=== PATIENT | female | born 1965 | race Caucasian/White ===

== ENCOUNTER 2017-02-21 06:23 | Day surgery (SDC) | payer BC ==
[~2017-02-21 06:23] MED LIST: Acetaminophen TAB* 325 MG PO ONE; Buffered Lidocaine 0.9% SYRIN* 5 ML/SYR SYRINGE INTRADERM ONE; Famotidine IV* 10 MG/ML 2 ML (20 mg) IV ONE
[2017-02-21] MEDS ORDERED: Famotidine IV* 10 MG/ML 2 ML (20 mg) ONE (06:26)
[2017-02-21] MEDS ORDERED: Acetaminophen TAB* 325 MG ONE (06:26)
[2017-02-21] MEDS ORDERED: ceFOXitin 2 GM IVPREMIX* 2 GM/50 ML BAG ONE (06:26)
[2017-02-21] MEDS ORDERED: Buffered Lidocaine 0.9% SYRIN* 5 ML/SYR SYRINGE ONE (06:27)
[2017-02-21 06:55] LABS: ABS Basophils 0.2 10^3/ul (0-0.2); ABS Eosinophils 0.3 10^3/ul (0-0.6); ABS Lymphocytes 2.6 10^3/ul (1.0-4.8); ABS Monocytes 0.5 10^3/ul (0-0.8); ABS Neutrophils 3.7 10^3/ul (1.5-7.7); ABS Nucleated RBC 0 10^3/ul; Eosinophil % 3.4 % (0-6); Hematocrit 37 % (35-47); Hemoglobin 12.4 g/dl (12.0-16.0); Lymphocyte % 35.9 % (25-47); Mean Corpuscular HGB Conc 34 g/dl (31-36); Mean Corpuscular Hemoglobin 31 pg (27-31); Mean Corpuscular Volume 93 fL (80-97); Mean Platelet Volume 8 um3 (7.4-10.4); Nucleated Red Blood Cells % 0; Platelet Count 384 10^3/ul (150-450); Red Blood Count 3.95 10^6/ul (4.0-5.4); Red Cell Distribution Width 15 % (10.5-15); White Blood Count 7.3 10^3/ul (3.5-10.8)
[2017-02-21] MEDS ORDERED: Midazolam* 1 MG/ML 2 ML VIAL (2 MG) ONE (07:10)
[2017-02-21] MEDS ORDERED: fentaNYL* 50 MCG/ML 2 ML VIAL (100 MCG VIAL) ONE (07:10)
[2017-02-21] MEDS ORDERED: Lidocaine 1% INJ* 10 MG/ML 30 ML SDV ONE (07:53)
[2017-02-21] MEDS ORDERED: Lidocaine 2% PF * 5 ML VIAL ONE (08:14)
[2017-02-21] MEDS ORDERED: Propofol* 500 MG/50 ML BTL ONE (08:14)
[2017-02-21] MEDS ORDERED: EPHEDrine (Pressors)* 50 MG/ML VIAL ONE (08:15)
[2017-02-21] MEDS ORDERED: Ondansetron INJ* 2 MG/ML VIAL ONE (08:15)
[2017-02-21] MEDS ORDERED: Ketorolac INJ* 30 MG/ML 1 ML VIAL ONE (08:15)
[2017-02-21] MEDS ORDERED: Sterile Water for Inj* 10 ML ONE (08:15)
[2017-02-21] MEDS ORDERED: fentaNYL* 50 MCG/ML 2 ML VIAL (100 MCG VIAL) IV PRN (08:47)
[2017-02-21] MEDS ORDERED: oxyCODONE/Acetamin 5/325 MG* TAB PO PRN (08:47)
[2017-02-21] MEDS ORDERED: oxyCODONE TAB* 5 MG TAB PO PRN (08:47)
[2017-02-21] MEDS ORDERED: Ondansetron INJ* 2 MG/ML VIAL IV PRN (08:47)
[2017-02-21] MEDS ORDERED: Naloxone* 0.4 MG/ML 1 ML VIAL IV PRN (08:47)
[2017-02-21] MEDS ORDERED: HYDROcodone/ACETAMIN 5-325 MG* 1 TAB PO PRN (08:47)
[2017-02-21 09:56] VITALS: BP 109/75
--- NOTE | 2017-02-22 15:52 | OP ---
AMENDED REPORT NOW INCLUDES DATE OF OPERATION DATE OF OPERATION: 02/21/17 - [facility] DATE OF : 63 SURGEON: Wanda Dodge MD [employer]NER OPERATOR: None. ANESTHESIA: Sedation with paracervical block. PRE-OP DIAGNOSES: Menometrorrhagia and submucous leiomyoma. POST-OP DIAGNOSES: Menometrorrhagia and submucous leiomyoma. OPERATIVE PROCEDURE: Dilation curettage, hysteroscopic resection of leiomyoma. ESTIMATED BLOOD LOSS: Minimal. URINE OUTPUT: 50 cc of concentrated yellow urine. FLUIDS: 500 cc of crystalloid. DEFICIT: 205 cc. FINDINGS: Revealed an anterior submucous fibroid, approximately 2 cm size, normal appearing tubal ostium bilaterally, normal appearing cervix and endocervical canal. COMPLICATIONS: None apparent. DISPOSITION: Stable to recovery room. DESCRIPTION OF PROCEDURE: The patient was placed in dorsal lithotomy position. Legs were placed in Adrian Sergo stirrups. The perineum and vagina were prepped and draped in a sterile standard fashion. After identifying the patient with universal protocol, a self-cath was used to drain the bladder for 50 cc of concentrated urine. Self-cath was removed. A sterile speculum was inserted into the vagina. Anterior lip of the cervix was grasped with a single- tooth tenaculum and dilated to #8 Hegar. A MyoSure hysteroscope was then inserted confirming anterior placement of the fibroid. At that point, a MyoSure reduction of the fibroid was carried out in standard technique. The hysteroscope was then removed. Sharp curettings were performed. Single-tooth tenaculum was removed. All sponge, instrument, and blade counts were correct throughout the case. The patient tolerated the procedure well and went to recovery room in stable condition. [id number] #: [id number] MTDD
== END 2017-02-21 09:56 | disposition home or self-care (01) ==
LOC: OR 06:23
PROVIDERS: ATTEND Obstetrics & Gynecology
DX: N92.1 Excessive and frequent menstruation with irregular cycle (principal); D25.0 Submucous leiomyoma of uterus; I47.1 Supraventricular tachycardia
CPT/HCPCS: 36415; 81025; 85025; 86850; 86900; 86901; 88305; A9270-GY; J0694; J1885; J2250; J2405; J2704; J3010